=== PATIENT | female | born 1990 | race Caucasian/White ===

== ENCOUNTER → 2019-01-23 | Outpatient (CLI) | payer BC, OTHER ==
[~2019-01-23] MED LIST: ACET1TAB43 PO; CEPH-507 PO; FERR-84 PO; FERR325T18 PO; IBUP-1773 PO; PREN1TAB71 PO
--- NOTE | 2019-01-23 16:35 | Diagnostic Imaging Report ---
INDICATION: Anatomical survey, patient. TECHNIQUE: Multiple real-time grayscale images were obtained over the gravid uterus. COMPARISON: None during this . FINDINGS: A single live intrauterine fetus is seen measuring 20 weeks 3 days by composite measurements. The fetus is in cephalic presentation. Placenta is posterior and grade 1. There is no evidence of placenta previa. survey showed no detectable abnormalities. Normal-appearing kidneys and bladder and stomach and intracranial ventricles are seen. Normal-appearing four-chamber heart view and spine were visualized. Three-vessel cord and cord insertion are present and appear unremarkable. Cervical length is 4.9 cm. heart rate could not be obtained due to technical reasons but appeared qualitatively normal on visual clip. Biometrical measurements are as follows: Biparietal 4.8 cm, age 20 weeks 3 days. Head circumference 17.8 cm, age 20 weeks 2 days. Abdominal circumference 15.1 cm, age 20 weeks 3 days. Femur length 3.4 cm, age 20 weeks 4 days. Sonographic estimate age: 20 weeks 3 days. Sonographic estimated date of delivery: 06/09/19. Estimated Weight: 350 gm (+/- 51 gm). LMP percentile: 43%. heart rate: NOT TAKEN/VISUALLY NORMAL beats per minute. number: 1 of 1. IMPRESSION: Single live intrauterine fetus measuring 20 weeks 3 days in size with no detectable abnormalities. Dictated by: Dictated on workstation # [id number]
== END ==
LOC: RAD 15:30
PROVIDERS: ATTEND Nurse Practitioner Women's Health
DX: Z36.89 Encounter for other specified antenatal screening (principal); Z3A.20 20 weeks gestation of pregnancy
CPT/HCPCS: 76805

== ENCOUNTER 2019-02-13 11:35 | Observation (INO) | payer BC ==
[~2019-02-13] VITALS: Ht 167.7 cm; Wt 91.6 kg
--- NOTE | 2019-02-13 11:35 | NUR ---
Arrived to unit via ambulation with c/o leaking fluid since 0630 this am. wt obtained and to room 318. gowned and urine sample obtained. plan of care reviewed with pt and pt verbalized understanding. pt states "I did not have intercourse but did masturbated yesterday and Dr Alas told me not to have intercourse because I have had a cervical rupture after." Oriented to room, call light and surroundings.
--- NOTE | 2019-02-13 11:55 | NUR ---
Dr Ron notified of fluid noted during nitrazine check and nitrazine positive, sve, fhr pattern and toco on with no ctx palpated and pt denies contractions
--- NOTE | 2019-02-13 11:59 | NUR ---
Plan of care reviewed with pt, peach pad on along with underwear to monitor fluid leaking. Addendum: 02/13/19 at 1200 by CECIL LAMBERT RN discussed with pt bedside sono to be done to check fluid level
[2019-02-13 12:25] VITALS: BP 110/59
[2019-02-13 12:26] VITALS: BP 110/59
--- NOTE | 2019-02-13 12:45 | NUR ---
Dr Ron notified of sono result DEBORA of 7.8
[2019-02-13] MEDS ORDERED: D5 LR IV SOLUTION 1,000 ML IV SCH (13:00)
--- NOTE | 2019-02-13 13:01 | History & Physical-OB/GYN ---
History of Present Illness History of Present Illness Reason for visit/HPI Ms. Vanessa is a A0 with an EDC of 06/09/2019 which puts her at 23 3/7 weeks gestation who presents to the hospital secondary to leaking fluid. Denies any cramping or contractions at this time. Date of Admission Feb 13, 2019 at 11:45 Date Seen by a Provider: Feb 13, 2019 Time Seen by a Provider: 13:00 I consulted on this patient on 02/13/19 12:[address] Oumar Alas Admitting Physician Rian Ron DO Consult Allergies and Home Medications Allergies Coded Allergies: No Known Drug Allergies (Unverified , 12/26/15) Home Medications Acetaminophen with Codeine 1 Each Tablet, 0 TAB PO Q4H PRN for MODERATE TO SEVERE PAIN Prescribed by: OUMAR ALAS on 01/16/16 0718 Cephalexin 500 Mg Capsule, 500 MG PO TID Prescribed by: CHEPE MENARD on 12/26/15 0208 Ferrous Sulfate 325 Mg Tablet, 325 MG PO DAILY Prescribed by: OUMAR ALAS on 01/16/16717 Ibuprofen 600 Mg Tablet, 600 MG PO Q6H Prescribed by: OUMAR ALAS on 01/16/16 0718 Vit/Iron Fumarate/FA 1 Each Tablet, 1 EACH PO DAILY, (Reported) Patient Home Medication List Home Medication List Reviewed: Yes Past Uhamgbg-Rqywhl-Nedkly Hx Patient Social History Marrital Status: (Aung is her ) Number of Children: 1 Number of living children: 1 Employed/Student: employed Alcohol Use: Denies Use Alcohol Beverage of Choice: Vodka Recreational Drug Use: No Smoking Status: Never a Smoker Recent Foreign Travel: No Contact w/other who traveled: No Recent Hopitalizations: No Recent Infectious Disease Expo: No Immunizations Up To Date Tetanus Booster (TDap): Less than 5yrs Date of Influenza Vaccine: Jan 02, 2019 Seasonal Allergies Seasonal Allergies: No Surgeries No Respiratory No Cardiovascular Yes Hypertension (Preeclampsia with previous , delivered at 37 weeks) Neurological No Reproductive System : Yes Expected Date of Delivery: Jun 09, 2019 Hx : 2 Hx Para: 1 Hx Total # of Abortions (Spona: 0 Hx Reproductive Disorders: No Sexually Transmitted Disease: No HIV/AIDS: No Female Reproductive Disorders: Denies Genitourinary No Gastrointestinal Gastroesophageal Reflux Musculoskeletal No Endocrine History of Endocrine Disorders: No HEENT History of HEENT Disorders: No Loss of Vision: Denies Hearing Impairment: Denies Cancer No Psychosocial History of Psychiatric Problem: No Integumentary History of Skin or Integumenta: No Blood Transfusions Adverse Reaction to a Blood Tr: No Reviewed Nursing Assessment Reviewed/Agree w Nursing PMH: Yes Family Medical History Significant Family History: Heart Disease, Hypertension Family Hx: Hypertension 19 FATHER Myocardial infarction 19 FATHER Review of Systems Constitutional: no symptoms reported Physical Exam Physical Exam Vital Signs Vital Signs Date Time Temp Pulse Resp B/P (MAP) Pulse Ox O2 Delivery O2 Flow Rate FiO2 02/13/19 14:15 113 18 146/58 (87) Room Air 02/13/19 14:00 101 18 112/64 (80) Room Air 02/13/19 12:26 36.5 95 18 100 Room Air 02/13/19 12:25 36.2 95 18 110/59 (76) Room Air Capillary Refill : Less Than 3 Seconds General Appearance: No Apparent Distress Respiratory: Chest Non Tender, Lungs Clear, Normal Breath Sounds Cardiovascular: Regular Rate, Rhythm Abdominal: normal bowel sounds, non tender, soft Gynecology/General: No urethral discharge Labia: WNL Vagina: WNL Cervix: Other (Closed but leaking amniotic fluid) Cervix Mass: firm Cervix OS: closed Uterus: Enlarged Extremity: Normal Inspection, Normal Range of Motion, Non Tender Assessment/Plan Assessment and Plan Intrauterine at 23 3/7 weeks 2. PPROM 3. Labor 4. Unknown GBS Status Plan Transfer to [facility] (Accepting physician, Dr. Jaron Hill). While here, Ms. Vanessa received Ampicillin, Magnesium Sulfate and Betamethasone. A GBS swab was done prior to antibiotics. The risks of transfer were discussed with Ms. Vanessa. All questions were answered Admission Diagnosis Admission Status: Observation Reason for Inpatient Admission: Intrauterine at 23 3/7 weeks 2. PPROM 3. Labor 4. Unknown GBS Status RIAN RON DO Feb 13, 2019 13:01 POS
[2019-02-13] MEDS ORDERED: D5 LR IV SOLUTION 1,000 ML IV ONE (13:03)
[2019-02-13] MEDS ORDERED: AMPICILLIN FOR IV USE 2,000 MG VIAL ONE (13:03)
[2019-02-13] MEDS ORDERED: WATER (STERILE) FOR INJECTION 20 ML ONE (13:03)
[2019-02-13] MEDS ORDERED: MAGNESIUM SULFATE DRIP 500 ML IV ONE (13:03)
[2019-02-13] MEDS ORDERED: AMPICILLIN FOR IV USE 2,000 MG in WATER (STERILE) FOR INJECTION 14.8 ML IV NR (13:30)
[2019-02-13] MEDS: MAGNESIUM SULFATE DRIP 500 ML IV SCH ×2 (13:36→14:00)
[2019-02-13] MEDS ORDERED: BETAMETHASONE ACE/NA PHOS 6 MG/ML (CELESTONE SOLUSPAN) ONE (13:53)
[2019-02-13 14:00] VITALS: BP 112/64
--- NOTE | 2019-02-13 14:08 | Diagnostic Imaging Report ---
INDICATION: Spontaneous rupture of membranes with intermittent leaking of fluid TECHNIQUE: Limited Real-time grayscale images were obtained over the gravid uterus in various projections. FINDINGS: There is a single living intrauterine in breech presentation. The amniotic fluid index is 7.8. The placenta is posterior with no previa. The heart rate is 127 BPM and regular. IMPRESSION: The amniotic fluid index is at the lower limits of normal at 7.8 cm. Dictated by: Dictated on workstation # [id number]
[2019-02-13 14:15] VITALS: BP 146/58
--- NOTE | 2019-02-13 14:23 | NUR ---
monitors off. EMS transport to bedside. report to EMS transport team.
--- NOTE | 2019-02-13 14:30 | NUR ---
Pt transferred off floor to [facility] per EMS transport.
[2019-02-14] MEDS ORDERED: BETAMETHASONE ACE/NA PHOS 6 MG/ML (CELESTONE SOLUSPAN) IM NR (09:00)
== END 2019-02-13 14:30 | disposition designated cancer center or children's hospital (05) ==
LOC: LDRP 11:35 → UNDOADMOB 11:45 → LDRP 11:45 → UNDODISOB 14:30
PROVIDERS: ADMIT Obstetrics & Gynecology; ATTEND Obstetrics & Gynecology
DX: O42.912 Preterm premature rupture of membranes, unspecified as to length of time between rupture and onset of labor, second trimester (principal); O88.112 Amniotic fluid embolism in pregnancy, second trimester; O60.02 Preterm labor without delivery, second trimester; O16.2 Unspecified maternal hypertension, second trimester; O99.62 Diseases of the digestive system complicating childbirth; Z37.9 Outcome of delivery, unspecified
CPT/HCPCS: 76815; 96361; 96372; 96374; 96375; 99211; G0378

== ENCOUNTER 2019-03-16 13:09 | Outpatient (CLI) | payer BC ==
[~2019-03-16] VITALS: Ht 167 cm; Wt 92.7 kg
--- NOTE | 2019-03-16 13:05 | NUR ---
SHIMON GORDON presented to unit via from home, accompanied by Aung , with c/o BLEEDING. SHIMON GORDON weighed, gowned, voided, and to bed. EFHM and TOCO applied, VS taken. SHIMON GORDON oriented to bed controls, call light, TV, heat, and A/C controls. History of leaking amniotic fluid at 23 weeks sent to [facility]. She stated bag resealed and is now being managed by Dr Alas. 26.7 weeks. Received 2 doses of steriods in office this week. Pt states bleeding is bright like a period since cream dipper. Urine appeared to have blood in it. No blood on perineal area. Placed pad on and scant amt in 30 minutes. Pt has been maintaining bedrest and pelvic rest. Dr Alas present and performed gentle speculum exam. Minimal bleeding. Will observe for the remainder of the afternoon. Denies contractions but occasionally crampy. FHR 150's.
[2019-03-16 13:15] VITALS: BP 115/68
[2019-03-16 13:58] VITALS: BP 106/60
--- NOTE | 2019-03-16 14:30 | NUR ---
FHR 150's with accelerations of 10 bpm. No contractions 1520 Up to BR. Small amt brown colored vaginal discharge. FHR 140's with occasional 5-10 second variables. Pt comfortable. at bedside.
[2019-03-16 15:30] VITALS: BP 105/60
--- NOTE | 2019-03-16 16:30 | NUR ---
Dr Alas here to see pt. Discharge instructions given. 1655 Out pt instructions given with pt verbalized understanding. To exit accompanied by .
--- NOTE | 2019-03-17 07:58 | Physician Query-Final Dx ---
JAMIL SOL 03/17/19 0758: Clinic Account Progress/Dx Physician Query: Please give diagnosis Please include # weeks gestation Date of Service Mar 16, 2019 at 13:09 DESTINY ARAMBULA DO 03/17/192049: Clinic Account Progress/Dx DIAGNOSIS: Diagnosis 27 week IUP Light vaginal bleeding in Hx of PTL JAMIL SOL Mar 17, 2019 07:58 POSDESTINY ARAMBULA DO Mar 17, 2019 20:50 POS
== END 2019-03-16 16:55 | disposition home or self-care (01) ==
LOC: WSo 13:09 → LDRP 13:09 → WSo 16:55
PROVIDERS: ATTEND Obstetrics & Gynecology
DX: O46.92 Antepartum hemorrhage, unspecified, second trimester (principal); Z3A.27 27 weeks gestation of pregnancy; Z87.51 Personal history of pre-term labor
CPT/HCPCS: 99213

== ENCOUNTER → 2022-12-07 | Outpatient (CLI) | payer OTHER ==
[~2022-12-07] MED LIST changes: +ACET-11 PO; -ACET1TAB43 PO
--- NOTE | 2022-12-07 18:01 | Diagnostic Imaging Report ---
INDICATION: Anatomic survey of fetus. TECHNIQUE: Multiple real-time grayscale images were obtained over the gravid uterus. COMPARISON: None. FINDINGS: There is lee intrauterine gestation. The placenta is posterior and low lying without definite previa. There is normal amniotic fluid index of 18 cm with heart rate of 135 BPM. Cervical length is 5.6 cm. Fetus is initially in cephalic presentation but is mobile. No anomalies identified. biometry indicates gestational age of 20 weeks and 4 days. IMPRESSION: Unremarkable intrauterine gestation with estimated age of 20 weeks and 4 days. Sonographic EDC is 04/22/2023. Biometrical measurements are as follows: Biparietal 4.65 cm, age 20 weeks 1 days. Head circumference 18.06 cm, age 20 weeks 4 days. Abdominal circumference 15.99 cm, age 21 weeks 1 days. Femur length 3.31 cm, age 20 weeks 3 days. Sonographic estimate age: 20 weeks 4 days. Sonographic estimated date of delivery: 04/22/2023. Estimated Weight: 372 gm (+/- 55 gm). LMP percentile: 77%. heart rate: 135 beats per minute. number: 1 of 1. Dictated by: Dictated on workstation # [id number]
== END ==
LOC: RAD 14:35
PROVIDERS: ATTEND Obstetrics & Gynecology
DX: Z36.89 Encounter for other specified antenatal screening (principal); Z3A.20 20 weeks gestation of pregnancy
CPT/HCPCS: 76805

== ENCOUNTER → 2023-02-26 | Outpatient (CLI) | payer OTHER ==
--- NOTE | 2023-02-26 17:03 | Diagnostic Imaging Report ---
INDICATION: Size measuring greater than dates TECHNIQUE: Multiple real-time grayscale images were obtained over the gravid uterus. COMPARISON: 11/29/2022 FINDINGS: Single viable intrauterine currently in a cephalic presentation. Amount of amniotic fluid is borderline polyhydramnios, index 21.1 cm. Placenta posterior and without evidence for previa. Cervical length 3.5 cm and unremarkable. Biometrical measurements are as follows: Biparietal 8.56 cm, age 34 weeks 4 days. Head circumference 30.53 cm, age 34 weeks 0 days. Abdominal circumference 29.67 cm, age 33 weeks 5 days. Femur length 6.35 cm, age 32 weeks 6 days. Sonographic estimate age: 33 weeks 6 days. Sonographic estimated date of delivery: 04/10/2023. Estimated Weight: 2216 gm (+/- 324 gm). LMP percentile: 91%. heart rate: 134 beats per minute. number: 1 of 1. IMPRESSION: 1. Single viable intrauterine , currently in a cephalic presentation. 2. Sonographic estimated age 33 weeks 6 days, with an estimated date of delivery 04/10/2023. This is approximately 12 days advanced compared to initial ultrasound dating. Estimated weight is at the 91 percentile. 3. Borderline polyhydramnios. Dictated by: Dictated on workstation # [id number]
== END ==
LOC: RAD 12:58
PROVIDERS: ATTEND Obstetrics & Gynecology
DX: Z36.89 Encounter for other specified antenatal screening (principal); Z3A.33 33 weeks gestation of pregnancy
CPT/HCPCS: 76805

== ENCOUNTER → 2023-03-16 | Outpatient (CLI) | payer OTHER ==
[~2023-03-16] MED LIST changes: +EPINEPHrine INJECTION 1 MG/ML AMP IM PRN; +HYDROCORTISONE INJECTION 100 MG/2 ML VIAL IV PRN; +IRON DEXTRAN 1,000 MG/NS 250 ML IVPB IV ONE; +IRON DEXTRAN 25 MG/NS 6.25 ML TOTAL VOLUME IV ONE; +RT-ALBUTEROL SULF 2.5 MG/3 ML PRE-MIX VIAL IH PRN; +diphenhydrAMINE INJ 50 MG/ML VIAL IV PRN
[2023-03-16 12:55] VITALS: BP 104/55
== END ==
LOC: SDC 12:49
PROVIDERS: ATTEND Obstetrics & Gynecology
DX: D64.9 Anemia, unspecified (principal)
CPT/HCPCS: 96365